=== PATIENT | male | born 1980 | race Caucasian/White ===

== ENCOUNTER 2017-03-11 02:04 | Emergency (ER) | payer OTHER, BC ==
[2017-03-11] MEDS ORDERED: BACITRACIN OINT TOP STA (03:21)
== END 2017-03-11 03:42 | disposition home or self-care (01) ==
DX: S50.812A Abrasion of left forearm, initial encounter (principal); W22.8XXA Striking against or struck by other objects, initial encounter; Y99.0 Civilian activity done for income or pay